=== PATIENT | male | born 1975 | race African-American/Black ===

== ENCOUNTER 2016-09-26 14:56 | Emergency (ER) | payer OTHER ==
[~2016-09-26] VITALS: Ht 170.2 cm; Wt 74.8 kg
[2016-09-26] MEDS ORDERED: ASPIRIN 325 MG TABLET PO ONE (15:45)
[2016-09-26 16:06] LABS: BASO % 1 % (0-3); EOS % 6 % (0-3); HEMATOCRIT 45.5 % (39.0-53.0); HEMOGLOBIN 15.6 g/dL (13.0-17.5); LYMPH # 1.3 x10^3/uL (1.0-4.8); LYMPH % 37 % (24-48); MEAN CORPUSCULAR HEMOGLOBIN 32 pg (25-35); MEAN CORPUSCULAR HGB CONC 34 g/dL (31-37); MEAN CORPUSCULAR VOLUME 94 fL (79-100); MONO % 9 % (0-9); NEUT % 47 % (31-73); PLATELET COUNT 214 x10^3/uL (140-400); RED BLOOD COUNT 4.86 x10^6/uL (4.30-5.70); RED CELL DISTRIBUTION WIDTH 14.1 % (11.5-14.5); WHITE BLOOD COUNT 3.6 x10^3/uL (4.0-11.0)
[2016-09-26 16:19] LABS: CALCIUM 9.1 mg/dL (8.5-10.1); CREATININE 1.2 mg/dL (0.7-1.3); GFR 66.7; POTASSIUM 4.4 mmol/L (3.5-5.1)
[2016-09-26 16:25] LABS: ALBUMIN 3.5 g/dL (3.4-5.0); TOTAL BILIRUBIN 0.3 mg/dL (0.2-1.0)
[2016-09-26 18:45] VITALS: BP 112/63
--- NOTE | 2016-09-26 19:12 | PHYS DOC ---
Past Medical History Past Medical History: Asthma, Other Additional Past Medical Histor: seas allergies Past Surgical History: No Surgical History Additional Information: 1 cigar per day Alcohol Use: None Drug Use: None Adult General Chief Complaint Chief Complaint: CHEST WALL PAIN HPI HPI Patient is a 41 year old male who presents with chest pain. Patient reports onset of pain at 0900 this morning when he woke from sleep. States pain is sharp , substernal, radiating across his chest and to left arm. Persistent at rest. Reports nausea and diaphoresis, denies shortness of breath. Denies fevers or chills, cough, lower extremity pain or swelling. Also reports right-sided headache. Denies vision changes, neck stiffness, extremity numbness or weakness. Reports he had a previous stress test several years ago at the [facility] which was unremarkable. Denies any known cardiac disease, he has history of asthma. Nonsmoker. PCP at the [facility]. Review of Systems Review of Systems Constitutional: Denies fever or chills Eyes: Denies change in visual acuity HENT: Denies nasal congestion or sore throat Respiratory: Denies cough or shortness of breath Cardiovascular: Reports chest pain, denies edema GI: Reports nausea. Denies abdominal pain, vomiting, or diarrhea Musculoskeletal: Denies back pain or joint pain Integument: Denies rash or skin lesions Neurologic: Reports headache, denies focal weakness or sensory changes Current Medications Current Medications Current Medications Medications (Trade) Dose Ordered Sig/Victorino Start Time Stop Time Status Last Admin Dose Admin Aspirin (Maria Antonia Aspirin) 325 mg 1X ONCE 09/26/16 15:45 09/26/16 15:49 DC 09/26/16 16:02 325 MG Allergies Allergies Allergies Coded Allergies Type Severity Reaction Last Updated Verified No Known Drug Allergies 09/26/16 No Physical Exam Physical Exam Constitutional: Well developed, well nourished, no acute distress, non-toxic appearance. HENT: Normocephalic, atraumatic, bilateral external ears normal, oropharynx moist, nose normal. Eyes: PERRLA, EOMI, conjunctiva normal, no discharge. Neck: supple, no stridor. No nuchal rigidity Cardiovascular: RRR, no murmurs, no edema. Lungs & Thorax: LCTAB, no wheezing, no respiratory distress. Reproducible tenderness with palpation over the sternum Abdomen: soft, nontender, nondistended. Skin: Warm, dry, no erythema, no rash. Back: No tenderness. Extremities: No tenderness, no edema. No calf tenderness or swelling Neurologic: Alert and oriented X 3, cranial nerves II through XII grossly intact , symmetric strength and sensation upper and lower extremities no focal deficits noted. Psychologic: Affect normal, judgement normal, mood normal. Current Patient Data Vital Signs Vital Signs Date Time Temp Pulse Resp B/P (MAP) Pulse Ox O2 Delivery O2 Flow Rate FiO2 09/26/16 18:45 62 18 112/63 (79) 98 09/26/16 15:45 Room Air 09/26/16 15:15 98.4 98.4 Lab Values Laboratory Tests Test 09/26/16 15:55 09/26/16 17:48 White Blood Count 3.6 x10^3/uL (4.0-11.0) L Red Blood Count 4.86 x10^6/uL (4.30-5.70) Hemoglobin 15.6 g/dL (13.0-17.5) Hematocrit 45.5 % (39.0-53.0) Mean Corpuscular Volume 94 fL (79-100) Mean Corpuscular Hemoglobin 32 pg (25-35) Mean Corpuscular Hemoglobin Concent 34 g/dL (31-37) Red Cell Distribution Width 14.1 % (11.5-14.5) Platelet Count 214 x10^3/uL (140-400) Neutrophils (%) (Auto) 47 % (31-73) Lymphocytes (%) (Auto) 37 % (24-48) Monocytes (%) (Auto) 9 % (0-9) Eosinophils (%) (Auto) 6 % (0-3) H Basophils (%) (Auto) 1 % (0-3) Neutrophils # (Auto) 1.7 x10^3uL (1.8-7.7) L Lymphocytes # (Auto) 1.3 x10^3/uL (1.0-4.8) Monocytes # (Auto) 0.3 x10^3/uL (0.0-1.1) Eosinophils # (Auto) 0.2 x10^3/uL (0.0-0.7) Basophils # (Auto) 0.0 x10^3/uL (0.0-0.2) Sodium Level 142 mmol/L (136-145) Potassium Level 4.4 mmol/L (3.5-5.1) Chloride Level 105 mmol/L (98-107) Carbon Dioxide Level 29 mmol/L (21-32) Anion Gap 8 (6-14) Blood Urea Nitrogen 14 mg/dL (8-26) Creatinine 1.2 mg/dL (0.7-1.3) Estimated GFR (Cockcroft-Gault) 66.7 BUN/Creatinine Ratio 12 (6-20) Glucose Level 111 mg/dL (70-99) H Calcium Level 9.1 mg/dL (8.5-10.1) Total Bilirubin 0.3 mg/dL (0.2-1.0) Aspartate Amino Transferase (AST) 25 U/L (15-37) Alanine Aminotransferase (ALT) 37 U/L (16-63) Alkaline Phosphatase 108 U/L (46-116) Troponin I Quantitative < 0.017 ng/mL (0.000-0.055) < 0.017 ng/mL (0.000-0.055) VE-Ytu-V-Type Natriuretic Peptide 18 pg/mL (0-124) Total Protein 7.0 g/dL (6.4-8.2) Albumin 3.5 g/dL (3.4-5.0) Albumin/Globulin Ratio 1.0 (1.0-1.7) Laboratory Tests 09/26/16 15:55 Laboratory Tests 09/26/16 15:55 EKG EKG interpreted by me: NSR rate 70, no acute ST/T wave changes, normal intervals, no ectopy.[] Radiology/Procedures Radiology/Procedures CXR: interpreted by me: no cardiomegaly, no infiltrate, no pneumothorax.[] Course & Med Decision Making Course & Med Decision Making Pertinent Labs and Imaging studies reviewed. (See chart for details) The patient presents with chest pain. Gave aspirin, he declined need for any additional pain medication. Obtained labs, EKG, chest x-ray. No acute abnormality identified. HEART score is 0, low risk. Obtained repeat troponin, also negative. Patient feels better and would like to go home. Recommend rest, Tylenol or ibuprofen for pain. Follow-up with primary care physician or with Dr. Reilly in the cardiology clinic. Return to the emergency department for severe chest pain or shortness of breath, any otherwise worsening condition. Discharged home in stable condition. [] Dragon Disclaimer Dragon Disclaimer This electronic medical record was generated, in whole or in part, using a voice recognition dictation system. Departure Departure Impression: Primary Impression: Chest pain Disposition: HOME, SELF-CARE Condition: STABLE Referrals: UNKNOWN PCP NAME (PCP) RADHA REILLY MD Patient Instructions: Chest Pain (Nonspecific), [id number] Additional Instructions: You were seen in the emergency department today for chest pain. Tests did not show serious cause of symptoms. Please rest, try taking Tylenol or ibuprofen for pain. Sometimes this pain might be caused by muscle problems. Please follow- up with primary care doctor or doctor Reilly in the cardiology clinic, in about 2-3 days. Return to the emergency department for severe chest pain or shortness of breath, any otherwise worsening condition. MARGE ARE MD September 26, 2016 19:12
--- NOTE | 2016-09-27 07:06 | EKG ---
[address] [place] [id number] Test Date: 2016-09-26 Test Time: 15:28:13 Pat Name: PIA ALEXANDER Department: Room: Gender: M Video Production Intern: : 1975 Requested By: MARGE RAE Order Number: [id number] Reading MD: Bon García Measurements Intervals [place] Rate: 70 P: 44 ID: [id number] QRS: 44 QRSD: 78 T: 48 QT: 334 QTc: 363 Interpretive Statements SINUS RHYTHM Electronically Signed On 09-27-2016 10:38:13 CDT by Bon García
--- NOTE | 2016-09-27 08:38 | RAD ---
Exam: AP portable chest. History: Left-sided chest pain since the morning, history of asthma. Comparison: None. Findings: The heart and mediastinal structures are within normal limits for size. Lungs are without infiltrate. No pneumothorax or pleural effusion is appreciated. Impression: 1. No acute cardiopulmonary process.
== END 2016-09-26 19:20 | disposition home or self-care (01) ==
LOC: ER 14:56
DX: R07.9 Chest pain, unspecified (principal); R61 Generalized hyperhidrosis; R51 Headache; J45.909 Unspecified asthma, uncomplicated; F17.210 Nicotine dependence, cigarettes, uncomplicated
CPT/HCPCS: 36415; 71010; 80053; 83880; 84484; 85027; 93005; 99285-25